=== PATIENT | male | born 1985 | race African-American/Black ===

== ENCOUNTER 2017-07-02 11:45 | Emergency (ER) | payer OTHER ==
[~2017-07-02] VITALS: Ht 182.9 cm; Wt 72.7 kg
[2017-07-02 13:33] LABS: MUCUS, URINE RFX MODERATE (NEGATIVE); SPECIFIC GRAVITY UR AUTO RFX 1.026 (1.002-1.035); SQUAM EPITHELIAL CELL UR AURFX 0 /HPF (0-6)
[2017-07-02] MEDS ORDERED: ONDANSETRON 4MG/2ML VIAL (J2405) IV ONE (13:45)
[2017-07-02] MEDS ORDERED: NS 1,000 ML IV ONE (13:45)
[2017-07-02] MEDS ORDERED: MORPHINE 4 MG/ML 1ML SYRINGE IV PRN (13:45)
--- NOTE | 2017-07-02 14:25 | REP ---
CT of the abdomen pelvis without IV or bowel contrast: There are no comparisons. The visualized lung chaves are unremarkable. The unenhanced hepatic parenchyma, gallbladder, pancreas and spleen are unremarkable. There is a minimal volume of intraperitoneal and extraperitoneal body fat outlining tissue planes. The adrenals are unremarkable. There is no hydronephrosis. No renal calculi. There are no ureteral calculi. No bladder calculi. There is a 2.1 cm right renal cyst. The abdominal aorta is unremarkable. There is a large volume of fecal residue throughout the entire colon. There is no small bowel distension. There is no ascites. Pelvis: The bladder is nondistended and cannot be further evaluated. There is no adenopathy or ascites. The appendix is unremarkable. Impression: There is no hydronephrosis. No renal or ureteral calculi. There is a right renal cyst. There is no bowel distension or obstruction. There is a large volume of fecal residue throughout the colon. The appendix is unremarkable. The gallbladder is unremarkable. There is no ascites or adenopathy. There is a minimal volume of intraperitoneal and extraperitoneal body fat outlining tissue planes. Signed by Gigi Kim MD 07/02/2017 02:16 P
[2017-07-02 14:37] LABS: BASO % 0.6 % (0.0-1.0); EOS # 0.1 10^3/uL (0.0-0.50); EOS % 1.3 % (0.0-3.0); IMMATURE GRANULOCYTE % 0.2 % (0-0); LYMPH # 1.4 10^3/uL (1.5-4.5); LYMPH % 29.3 % (24.0-44.0); MEAN CORPUSCULAR HEMOGLOBIN 30.8 pg (27.0-33.0); MONO # 0.7 10^3/uL (0.0-0.8); MONO % 15.1 % (0.0-5.0); NEUTROPHILS # 2.5 10^3/uL (1.8-7.7); NEUTROPHILS % 53.5 % (36.0-66.0); PLATELET COUNT, AUTOMATED 278 10^3/uL (150-450); RED CELL DISTRIBUTION WIDTH 12.5 % (11.5-14.5); WHITE BLOOD COUNT 4.6 10^3/uL (4.0-10.0)
[2017-07-02 15:03] LABS: ALBUMIN 4.5 GM/DL (3.2-5.2); ALBUMIN/GLOBULIN RATIO 1.07 (1.00-1.93); ALKALINE PHOSPHATASE 86 U/L (45-117); ALT/SGPT 45 U/L (12-78); ANION GAP 5 MEQ/L (8-16); AST/SGOT 49 U/L (7-37); BILIRUBIN,DIRECT 0.4 MG/DL (0.0-0.2); BILIRUBIN,TOTAL 2.8 MG/DL (0.2-1.0); BLOOD UREA NITROGEN 14 MG/DL (7-18); CALCIUM LEVEL 9.6 MG/DL (8.5-10.1); CARBON DIOXIDE LEVEL 32 MEQ/L (21-32); CHLORIDE LEVEL 103 MEQ/L (98-107); CREATININE FOR GFR 0.99 MG/DL (0.70-1.30); GLOMERULAR FILTRATION RATE > 60.0 (>60); GLUCOSE, FASTING 81 MG/DL (70-105); POTASSIUM SERUM 4.6 MEQ/L (3.5-5.1); SODIUM LEVEL 140 MEQ/L (136-145); TOTAL PROTEIN 8.7 GM/DL (6.4-8.2)
[2017-07-02] MEDS ORDERED: MAGNESIUM CITRATE 300 ML BTL PO ONE (16:00)
[2017-07-02 16:05] VITALS: BP 117/70
--- NOTE | 2017-07-04 07:25 | REP ---
PA and lateral chest: There are no comparisons. The lung chaves are clear. The cardiac size is normal The ankita, mediastinum, and bony thorax are unremarkable. Impression: Negative PA and lateral chest. Signed by Gigi Kim MD 07/02/2017 02:17 P
== END 2017-07-02 16:09 | disposition home or self-care (01) ==
LOC: M ED 11:45
DX: K59.00 Constipation, unspecified (principal)
CPT/HCPCS: 36415; 71020; 74176; 80048; 80076; 81001; 83605; 83690; 85025; 87040; 96374; 96375; 99284; J2405

== ENCOUNTER → 2017-07-02 | Outpatient (REF) | payer OTHER ==
[~2017-07-02] MED LIST: CYCL10TA PO
== END ==
LOC: M SFHCLERA 11:09
PROVIDERS: ATTEND Nurse Practitioner Family
DX: R10.9 Unspecified abdominal pain (principal)

== ENCOUNTER 2017-07-04 06:43 | Emergency (ER) | payer OTHER ==
[~2017-07-04] VITALS: Ht 180.3 cm; Wt 72.7 kg
--- NOTE | 2017-07-04 08:45 | REP ---
Right upper quadrant sonography: History: Right upper quadrant pain. Right flank pain. Attention gallbladder. Comparison CT study July 02, 2017. Findings: Scanning through the right upper quadrant of the abdomen demonstrates a normal sized thin-walled gallbladder without evidence of stone or polyp. Common bile duct is normal measuring 0.3 cm in greatest diameter. No focal liver lesion is seen. Pancreas is unremarkable. There is a 2.0 x 1.8 x 1.8 cm cyst in the right kidney. Right kidney measures 9.6 x 5.2 x 4.3 cm. No pancreatic abnormality is observed. There is no evidence of ascites. Impression: 2.0 cm cyst right kidney. Otherwise unremarkable right upper quadrant sonography. Signed by Jose Valle MD 07/04/2017 03:49 P
[2017-07-04 09:34] LABS: BASO % 0.6 % (0.0-1.0); EOS # 0.1 10^3/uL (0.0-0.50); EOS % 1.1 % (0.0-3.0); IMMATURE GRANULOCYTE % 0.2 % (0-0); LYMPH # 1.6 10^3/uL (1.5-4.5); LYMPH % 30.7 % (24.0-44.0); MEAN CORPUSCULAR HGB CONC 35.3 g/dl (32.0-36.5); MEAN CORPUSCULAR VOLUME 87.7 fl (80.0-96.0); MONO # 0.5 10^3/uL (0.0-0.8); MONO % 10.1 % (0.0-5.0); NEUTROPHILS # 3.1 10^3/uL (1.8-7.7); NEUTROPHILS % 57.3 % (36.0-66.0); PLATELET COUNT, AUTOMATED 274 10^3/uL (150-450); RED CELL DISTRIBUTION WIDTH 12.2 % (11.5-14.5); WHITE BLOOD COUNT 5.3 10^3/uL (4.0-10.0)
[2017-07-04] MEDS ORDERED: CYCL10TA PO (10:27)
--- NOTE | 2017-07-04 10:29 | ED PDOC ---
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 Car Meier Jul 04, 2017 10:29
[2017-07-04 10:36] VITALS: BP 118/64
[2017-07-04 12:36] LABS: ALBUMIN/GLOBULIN RATIO 1.08 (1.00-1.93); ALKALINE PHOSPHATASE 76 U/L (45-117); ALT/SGPT 35 U/L (12-78); ANION GAP 9 MEQ/L (8-16); AST/SGOT 32 U/L (7-37); BILIRUBIN,DIRECT 0.3 MG/DL (0.0-0.2); BILIRUBIN,TOTAL 1.6 MG/DL (0.2-1.0); BLOOD UREA NITROGEN 14 MG/DL (7-18); CALCIUM LEVEL 9.6 MG/DL (8.5-10.1); CARBON DIOXIDE LEVEL 27 MEQ/L (21-32); CHLORIDE LEVEL 103 MEQ/L (98-107); CREATININE FOR GFR 0.92 MG/DL (0.70-1.30); GLOMERULAR FILTRATION RATE > 60.0 (>60); GLUCOSE, FASTING 92 MG/DL (70-105); POTASSIUM SERUM 4.6 MEQ/L (3.5-5.1); SODIUM LEVEL 139 MEQ/L (136-145); TOTAL PROTEIN 7.7 GM/DL (6.4-8.2)
== END 2017-07-04 10:37 | disposition home or self-care (01) ==
LOC: M ED 06:43
DX: E80.6 Other disorders of bilirubin metabolism (principal); R10.11 Right upper quadrant pain; N28.1 Cyst of kidney, acquired

== ENCOUNTER 2018-04-25 06:20 | Emergency (ER) | payer OTHER | END 2018-04-25 07:13 | disposition home or self-care (01) | LOC: M ED 06:20 | DX: M79.661 Pain in right lower leg (principal) | CPT/HCPCS: 73590 ==

== ENCOUNTER → 2018-05-02 | Outpatient (CLI) | payer OTHER | LOC: M RAD 09:54 | DX: R93.89 Abnormal findings on diagnostic imaging of other specified body structures (principal); M79.604 Pain in right leg | CPT/HCPCS: 78315 ==